=== PATIENT | female | born 1945 | race Caucasian/White ===

== ENCOUNTER 2023-07-13 14:13 | Emergency (ER) | payer MEDICARE, BC | END 2023-07-13 14:27 | disposition home or self-care (01) | LOC: LB.ED 14:13 | DX: T18.128A Food in esophagus causing other injury, initial encounter (principal); R41.0 Disorientation, unspecified; R09.89 Other specified symptoms and signs involving the circulatory and respiratory systems | CPT/HCPCS: 99283 ==

== ENCOUNTER 2023-07-23 07:00 | Emergency (ER) | payer MEDICARE, BC ==
[2023-07-23] MEDS ORDERED: Ketorolac 30 MG/ML SDV IM ONE (08:20)
[2023-07-23] MEDS: Ketorolac 60 MG/2 ML SDV IVPUSH ONE (08:21)
[2023-07-23] MEDS: Ketorolac 30 MG/ML SDV ONE (08:26)
[2023-07-23 08:51] LABS: BASOPHILS ABSOLUTE AUTO 0.07 K/uL (0.02-0.10); BASOPHILS PERCENT AUTO 0.8 % (0.0-0.5); EOSINOPHILS ABSOLUTE AUTO 0.22 K/uL (0.04-0.40); EOSINOPHILS PERCENT AUTO 2.4 % (1.0-5.0); HEMATOCRIT 45.9 % (37.0-47.0); HEMOGLOBIN 16.3 g/dL (11.5-16.5); LYMPHOCYTES ABSOLUTE AUTO 1.77 K/uL (1.50-4.00); LYMPHOCYTES PERCENT AUTO 19.3 % (20.0-40.0); MEAN CORPUSCULAR HEMOGLOBIN 34.8 pg (27.0-32.0); MEAN CORPUSCULAR HGB CONC 35.5 g/dL (31.0-35.0); MEAN CORPUSCULAR VOLUME 98 fL (76-96); MEAN PLATELET VOLUME 9.1 fL (6.0-10.0); MONOCYTES ABSOLUTE AUTO 0.77 K/uL (0.20-0.80); MONOCYTES PERCENT AUTO 8.4 % (3.0-10.0); NEUTROPHILS ABSOLUTE AUTO 6.34 K/uL (2.00-7.50); NEUTROPHILS PERCENT AUTO 69.1 % (45.0-70.0); PLATELET COUNT,PLT 270 K/uL (150-500); RED BLOOD CELL COUNT 4.69 M/uL (3.80-5.80); RED CELL DISTRIBUTION WIDTH 11.8 % (11.0-16.0); WHITE BLOOD CELL COUNT,WBC 9.2 K/uL (4.0-11.0)
[2023-07-23 08:59] LABS: A/G RATIO 1.1 (0.8-2.0); ANION GAP 15.3 mmol/L (5.0-15.0); BUN/CREATININE RATIO 10.8 (6-25); CALCIUM 9.3 mg/dL (8.5-10.1); CARBON DIOXIDE,CO2 23.8 mmol/L (21.0-32.0); CREATININE 1.2 mg/dL (0.55-1.02); EST CRCL DRUG DOSING (CG) 30.92 mL/min; POTASSIUM,K 4.1 mmol/L (3.5-5.1); PROTEIN TOTAL,TP 7.7 g/dL (6.4-8.2)
[2023-07-23] MEDS: Sodium Chloride 0.9% 500 ML IV ONE ×2 (09:20→09:52)
[2023-07-23] MEDS: Cyclobenzaprine 10 MG Tab PO ONE (09:49)
[2023-07-23] MEDS: Cyclobenzaprine 10 MG Tab ONE (10:19)
== END 2023-07-23 10:41 | disposition home or self-care (01) ==
LOC: LB.ED 07:00
DX: S39.012A Strain of muscle, fascia and tendon of lower back, initial encounter (principal); I10 Essential (primary) hypertension; Z87.891 Personal history of nicotine dependence; Z79.899 Other long term (current) drug therapy; W18.30XA Fall on same level, unspecified, initial encounter
CPT/HCPCS: 36415; 72128; 72131; 80053; 85025; 96361; 96374; 99283; 99284-25; A9270-GY; J1885; J7040